=== PATIENT | female | born 1980 | race African-American/Black ===

== ENCOUNTER 2018-08-18 16:20 | Emergency (ER) | payer OTHER ==
[~2018-08-18] VITALS: Ht 182.9 cm; Wt 138.0 kg
[2018-08-18] MEDS ORDERED: SODIUM CHLORIDE 0.9% 1,000 ML IV ONE (17:09)
[2018-08-18 17:52] LABS: BASOPHILS % 0.5 % (0.0-2.0); HEMATOCRIT. 35.3 % (36.0-48.0); HEMOGLOBIN. 11.7 g/dL (12.0-16.0); LYMPHOCYTES % 30.1 % (20.0-50.0); MEAN CORPUSCULAR HEMOGLOBIN 29.2 pg (28.0-32.0); MEAN CORPUSCULAR VOLUME 88.2 fL (81.0-99.0); MEAN PLATELET VOLUME 8.6 fl (7.4-10.4); MONOCYTES % 8.1 % (2.0-8.0); NEUTROPHILS % 58.3 % (40.0-76.0); PLATELET 313 x1000/uL (130-400); RED CELL DISTRIBUTION WIDTH 13.8 % (11.6-14.6)
[2018-08-18 17:56] LABS: CHLORIDE 106 mEq/L (98-107)
[2018-08-18 18:00] LABS: D-DIMER 0.39 mg/L FEU (<0.50)
[2018-08-18 18:08] LABS: CLARITY URINE CLEAR (CLEAR); COLOR URINE YELLOW (YELLOW); KETONES URINE TRACE (NEGATIVE); LEUKOCYTE ESTERASE URINE TRACE (NEGATIVE); NITRITE URINE NEGATIVE (NEGATIVE); OCCULT BLOOD URINE 3+ (NEGATIVE); PH URINE 6.5 (4.5-8.0); PROTEIN URINE TRACE (NEGATIVE); SPECIFIC GRAVITY URINE 1.028 (1.005-1.030)
[2018-08-18] MEDS ORDERED: POTASSIUM CHLORIDE 20MEQ TABLET SR PO ONE (18:15)
[2018-08-18 18:32] LABS: HCG SCREEN NEGATIVE
[2018-08-18 19:37] VITALS: BP 132/78
== END 2018-08-18 19:50 | disposition home or self-care (01) ==
LOC: ER 16:20
DX: R10.13 Epigastric pain (principal); K21.9 Gastro-esophageal reflux disease without esophagitis; D25.9 Leiomyoma of uterus, unspecified; J45.909 Unspecified asthma, uncomplicated; R00.0 Tachycardia, unspecified; E87.6 Hypokalemia; D64.9 Anemia, unspecified; Z86.711 Personal history of pulmonary embolism; Z79.01 Long term (current) use of anticoagulants; Z97.5 Presence of (intrauterine) contraceptive device
CPT/HCPCS: 36415; 71045; 80053; 81003; 83690; 84484; 84703; 85025; 85379; 85610; 93005; 93970; 99284; J7030